=== PATIENT | female | born 1965 | race Hispanic/Latino ===

== ENCOUNTER 2018-10-29 21:24 | Emergency (ER) | payer OTHER ==
[2018-10-29] MEDS ORDERED: IBUPROFEN 400 MG TABLET ONE (22:22)
== END 2018-10-29 22:43 | disposition home or self-care (01) ==
LOC: EDH 21:24
DX: S80.01XA Contusion of right knee, initial encounter (principal); I10 Essential (primary) hypertension; E11.9 Type 2 diabetes mellitus without complications; Z98.51 Tubal ligation status; W22.8XXA Striking against or struck by other objects, initial encounter; Y93.89 Activity, other specified; Y92.098 Other place in other non-institutional residence as the place of occurrence of the external cause; Y99.8 Other external cause status
CPT/HCPCS: 73562